=== PATIENT | female | born 1960 | race Caucasian/White ===

== ENCOUNTER 2016-11-10 14:34 | Outpatient (CLI) | payer OTHER | END 2016-11-10 14:35 | disposition home or self-care (01) | DX: Z12.31 Encounter for screening mammogram for malignant neoplasm of breast (principal); Z80.3 Family history of malignant neoplasm of breast ==

== ENCOUNTER 2016-11-28 08:25 | Outpatient (CLI) | payer OTHER ==
[2016-11-28] MEDS ORDERED: IOPAMIDOL-300 100 ML VIAL IVP ONE (08:50)
== END 2016-11-28 08:26 | disposition home or self-care (01) ==
DX: I25.10 Atherosclerotic heart disease of native coronary artery without angina pectoris (principal); I70.0 Atherosclerosis of aorta; R91.8 Other nonspecific abnormal finding of lung field; Q61.3 Polycystic kidney, unspecified
CPT/HCPCS: 71275; Q9967

== ENCOUNTER 2016-12-17 15:31 | Outpatient (CLI) | payer OTHER | END 2016-12-17 15:32 | DX: Q61.3 Polycystic kidney, unspecified (principal) ==

== ENCOUNTER 2021-01-03 14:09 | Outpatient (CLI) | payer SELFPAY | END 2021-01-03 14:10 | disposition short-term general hospital (02) | LOC: EMS 14:09 | DX: S71.111A Laceration without foreign body, right thigh, initial encounter (principal); S00.83XA Contusion of other part of head, initial encounter; S69.82XA Other specified injuries of left wrist, hand and finger(s), initial encounter; V19.3XXA Pedal cyclist (driver) (passenger) injured in unspecified nontraffic accident, initial encounter; Y93.55 Activity, bike riding; Y92.414 Local residential or business street as the place of occurrence of the external cause | CPT/HCPCS: A0425; A0429 ==

== ENCOUNTER 2023-11-09 14:48 | Outpatient (CLI) | payer OTHER ==
--- NOTE | 2023-11-10 11:04 | XRAY Report ---
PROCEDURE: Shoulder 2+V LT INDICATIONS: HAND AND SHOULDER PAIN TECHNIQUE: 3 views of the shoulder were acquired. COMPARISON: None. FINDINGS: Bones: Post surgical changes noted with a surgical anchor in the area of the coracoid process. Quest ion old fracture of the mid clavicle. No fractures or dislocations. No suspicious bony lesions. Mil [id number] osteoarthritic changes. Visualized ribs appear intact. Soft tissues: No suspicious soft tissue calcifications. The visualized lungs are within normal limi ts. IMPRESSION: 1. No acute bony abnormality. 2. [id number] osteoarthritis. Reviewed by: Kale Mane MD on 11/10/2023 11:02 AM PDT Approved by: Kale Mane MD on 11/10/2023 11:02 AM PDT Station ID: [id number]
--- NOTE | 2023-11-10 11:09 | XRAY Report ---
PROCEDURE: Hand 1-2V LT INDICATIONS: HAND AND SHOULDER PAIN TECHNIQUE: 2 views of the hand(s) acquired. COMPARISON: None. FINDINGS: Bones: No fractures or dislocations. No suspicious bony lesions. Moderate osteoarthritic changes in wrist and hand. No bony erosions. Soft tissues: No suspicious soft tissue calcifications or masses. IMPRESSION: No acute bony abnormality. Moderate osteoarthritic changes. Reviewed by: Kale Mane MD on 11/10/2023 11:08 AM PDT Approved by: Kale Mane MD on 11/10/2023 11:08 AM PDT Station ID: [id number]
== END 2023-11-09 14:49 | disposition home or self-care (01) ==
LOC: DI 14:48
PROVIDERS: ATTEND Internal Medicine Cardiovascular Disease
DX: M19.042 Primary osteoarthritis, left hand (principal); M19.012 Primary osteoarthritis, left shoulder